=== PATIENT | male | born 1975 | race Caucasian/White ===

== ENCOUNTER 2017-03-18 10:44 | Emergency (ER) | payer SELFPAY ==
[~2017-03-18] VITALS: Ht 175.3 cm; Wt 125.0 kg
[~2017-03-18 10:44] MED LIST: HYDR-3533 PO; PENI500T PO; VENTAER INH
[2017-03-18 10:46] VITALS: BP 148/98; PULSE 84; RESP 16; TEMP 97.9; O2SAT 97
[2017-03-18] MEDS ORDERED: ALBU0.08 NEB (11:00)
--- NOTE | 2017-03-18 11:10 | PD ---
HPI Chief Complaint: Back/ Neck Pain or Injury Time Seen by Provider: 11:10 Travel History International Travel<30 days: No Contact w/Intl Traveler<30days: No Traveled to known affect area: No History of Present Illness HPI 41-year-old male presents to the emergency Department with recurrent lower back pain. Patient states she has recurrent back pain for many years. He works construction. He is overweight. He states it flares up now and again , and he has been seen by chiropractor, as well as many other doctors. Patient denies radicular symptoms or bowel or bladder changes. Patient states pain pills don't really help with anti-inflammatories do. His pain today is an 8 out of 10. He has no known drug allergies. PFSH Past Medical History Asthma: Yes Diminished Hearing: No Medical other: Yes (chronic back pain) Respiratory: Yes (asthma) Tetanus Vaccination: < 5 Years Influenza Vaccination: No ?: Not Past Surgical History Surgical History: No Previous Surgery Social History Alcohol Use: Yes (OCC) Tobacco Use: No Substance Use: No Allergies-Medications (Allergen,Severity, Reaction): Coded Allergies: No Known Allergies (Unverified , 03/18/17) Reported Meds & Prescriptions Reported Meds & Active Scripts Active Prednisone 20 Mg Tab 20 Mg PO BID Flexeril (Cyclobenzaprine HCl) 10 Mg Tab 10 Mg PO TID Reported Albuterol Neb (Albuterol Sulfate) 2.5 Mg/3 Ml Neb 2.5 Mg NEB TID NEB PRN Ventolin Hfa 18 GM Inh (Albuterol Sulfate) 90 Mcg/Act Aer 1 Puff INH Q4H PRN Review of Systems Except as stated in HPI: all other systems reviewed are Neg General / Constitutional: No: Fever Eyes: No: Visual changes HENT: No: Headaches Cardiovascular: No: Chest Pain or Discomfort Respiratory: No: Shortness of Breath Gastrointestinal: No: Abdominal Pain Genitourinary: No: Dysuria Musculoskeletal: Positive: Myalgias, Arthralgias, Limited ROM, Pain (see history present illness) Skin: No Rash Neurologic: No: Weakness Psychiatric: No: Depression Endocrine: No: Polydipsia Hematologic/Lymphatic: No: Easy Bruising Physical Exam Narrative GENERAL: Patient appears in mild to moderate distress. SKIN: Warm and dry. Normal color. Normal turgor. No rash. HEAD: Atraumatic. Normocephalic. EYES: Pupils equal and round. No scleral icterus. No injection or drainage. ENT: No nasal bleeding or discharge. Mucous membranes pink and moist. NECK: Trachea midline. No JVD. CARDIOVASCULAR: Regular rate and rhythm. RESPIRATORY: No accessory muscle use. Clear to auscultation. Breath sounds equal bilaterally. MUSCULOSKELETAL: Extremities without clubbing, cyanosis, or edema. No obvious deformities. Patient has generalized tenderness in the lower lumbar region. No specific bony tenderness or step-off. Negative straight leg raise bilaterally. Patient is able to dorsiflex and stand on each foot individually. NEUROLOGICAL: Awake and alert. No obvious cranial nerve deficits. Motor grossly within normal limits. Five out of 5 muscle strength in the arms and legs. Normal speech. PSYCHIATRIC: Appropriate mood and affect; insight and judgment normal. Data Data Last Documented VS Vital Signs Date Time Temp Pulse Resp B/P Pulse Ox O2 Delivery O2 Flow Rate FiO2 03/18/17 10:46 97.9 84 16 148/98 97 MDM Medical Decision Making Medical Screen Exam Complete: Yes Emergency Medical Condition: Yes Medical Record Reviewed: Yes Differential Diagnosis Lumbago without sciatica. Chronic low back pain. Obesity. Muscle spasm. Narrative Course Patient is medically stable at time of exam. Radiographic imaging is not felt warranted based on my history and physical. Patient will be treated with prednisone 20 mg twice a day 7 days. Patient also given Flexeril 10 mg up to 3 times daily for muscle spasm #30. Patient take extra strength Tylenol as well as needed for pain. Stretching exercises are reviewed and demonstrated to the patient. Patient use heat and ice as needed and encouraged to walk frequently. Patient encouraged to lose some weight which will improve his back pain. Patient follow-up with local primary care physician or return to emergency Department with worsening symptoms as discussed. Diagnosis Primary Impression: Lumbago without sciatica Qualified Code: M54.5 - Acute bilateral low back pain without sciatica Additional Impression: Muscle spasm Patient Instructions: Acute Low Back Pain (ED), General Instructions, Lower Back Exercises (ED) Additional Instructions: Radiographic imaging is not felt warranted based on my history and physical. Patient will be treated with prednisone 20 mg twice a day 7 days. Patient also given Flexeril 10 mg up to 3 times daily for muscle spasm #30. Patient take extra strength Tylenol as well as needed for pain. Stretching exercises are reviewed and demonstrated to the patient. Patient use heat and ice as needed and encouraged to walk frequently. Patient encouraged to lose some weight which will improve his back pain. Patient follow-up with local primary care physician or return to emergency Department with worsening symptoms as discussed. Med/Other Pt SpecificInfo: Prescription(s) given Scripts Prednisone 20 Mg Tab20 Mg PO BID #14 TAB Prov:Solomon Andre MD 03/18/17 Cyclobenzaprine (Flexeril)10 Mg Tab10 Mg PO TID #30 TAB Ref 0 Prov:Solomon Andre MD 03/18/17 Disposition: 01 DISCHARGE HOME Condition: Stable Mendel Velásquez March 18, 2017 11:10
[2017-03-18] MEDS ORDERED: CYCL1TAB29 PO (11:22)
[2017-03-18] MEDS ORDERED: PRED20 PO (11:22)
== END 2017-03-18 11:45 | disposition home or self-care (01) ==
LOC: PHEFT 10:44
DX: M54.5 Low back pain (principal); M62.838 Other muscle spasm; E66.9 Obesity, unspecified
CPT/HCPCS: 99283